=== PATIENT | male | born 1985 ===

== ENCOUNTER 2019-12-25 21:57 | Emergency (ER) | payer OTHER ==
[2019-12-25] MEDS ORDERED: FLUORESCEIN SODIUM 1 MG/WRAP ONE (22:32)
[2019-12-25] MEDS ORDERED: TETRACAINE HCL 0.5% 4ML OPTH ONE (22:57)
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
[2019-12-25 23:58] VITALS: BP 137/76; TEMP 97.9; O2SAT 100
== END 2019-12-25 23:52 | disposition home or self-care (01) ==
LOC: ER 21:57
DX: Z77.29 Contact with and (suspected) exposure to other hazardous substances (principal); F17.210 Nicotine dependence, cigarettes, uncomplicated
CPT/HCPCS: 99283